=== PATIENT | male | born 1990 | race Caucasian/White ===

== ENCOUNTER 2018-10-01 10:02 | Emergency (ER) | payer SELFPAY ==
[~2018-10-01] VITALS: Ht 175.3 cm; Wt 136.5 kg
[2018-10-01] MEDS ORDERED: IBUPROFEN 800MG TABLET PO ONE (10:45)
[2018-10-01 11:00] VITALS: BP 141/88
== END 2018-10-01 11:10 | disposition home or self-care (01) ==
LOC: ER 10:22
DX: S39.012A Strain of muscle, fascia and tendon of lower back, initial encounter (principal); F17.200 Nicotine dependence, unspecified, uncomplicated; X50.1XXA Overexertion from prolonged static or awkward postures, initial encounter; Y93.89 Activity, other specified; Y92.9 Unspecified place or not applicable
CPT/HCPCS: 99283